=== PATIENT | female | born 1955 | race Two or more races ===

== ENCOUNTER 2016-09-29 03:31 | Emergency (ER) | payer MEDICAID ==
[~2016-09-29] VITALS: Ht 154.9 cm; Wt 86.2 kg
[~2016-09-29 03:31] MED LIST: ENA2.5T GT; INSLANTI SC; METF-370 PO
[2016-09-29 03:55] LABS: Urine RBC None Seen /hpf (0 - 4)
[2016-09-29 04:03] LABS: Urine Bilirubin Negative (Negative); Urine Blood Negative /uL (Negative); Urine Color Yellow (Yellow); Urine Ketone Negative (Negative); Urine Nitrite Negative (Negative); Urine Urobilinogen Normal (Negative)
[2016-09-29 04:05] LABS: Urine Glucose 4+ mg/dL (Normal)
[2016-09-29 04:16] LABS: Basophils # (auto) 0 uL; Basophils % (auto) 0.7 % (0.0-2.0); CONDITION AutoValidated; DEFINITIVE SEE PRINTOUT; Eosinophils # (auto) 0 uL; Eosinophils % (auto) 0.7 % (0.0-7.0); Hematocrit 35.2 % (36.0-46.0); Hemoglobin 11.7 g/dL (12.2-16.2); Lymphocytes # (auto) 2.1 uL; Lymphocytes % (auto) 32.4 % (10.0-50.0); Mean Corpuscular Hemoglobin 26.4 pg (28.0-32.0); Mean Corpuscular Hgb Conc. 33.3 g/dL (32.0-36.0); Mean Corpuscular Volume 79.1 fL (80.0-100.0); Monocytes # (auto) 0.4 uL; Monocytes % (auto) 5.7 % (0.0-12.0); Neutrophils % (auto) 60.5 % (37.0-80.0); Platelet Count (auto) 266 10^3/uL (140-450); Red Cell Distribution Width 15.6 % (11.6-16.0); White Blood Cell 6.6 10^3/uL (4.4-10.8)
[2016-09-29 04:32] LABS: BUN/Creatinine Ratio 37.8; Potassium 4.1 mmol/L (3.5-5.1)
[2016-09-29 04:33] LABS: Albumin 3.8 g/dL (3.4-5.0); Calcium 8.4 mg/dL (8.5-10.1)
[2016-09-29 04:35] LABS: Bilirubin, Total 0.4 mg/dL (0.2-1.0); Total Protein 7.8 g/dL (6.4-8.2)
[2016-09-29] MEDS ORDERED: SODIUM CHLORIDE 0.9% 500 ML IV ONE (06:00)
[2016-09-29] MEDS ORDERED: KETOROLAC TROMETH 30 MG/ML 1ML VIAL IV ONE (07:30)
[2016-09-29 07:50] LABS: B-Type Natriuretic Peptide 10.19 pg/mL (0-100)
[2016-09-29 07:51] LABS: Temperature: 22.9 C (20.0-25.0)
[2016-09-29 08:57] VITALS: BP 148/74
== END 2016-09-29 09:38 | disposition home or self-care (01) ==
LOC: ER 03:31
DX: R10.9 Unspecified abdominal pain (principal); R30.0 Dysuria; M19.90 Unspecified osteoarthritis, unspecified site; Z87.440 Personal history of urinary (tract) infections; I10 Essential (primary) hypertension; E11.9 Type 2 diabetes mellitus without complications; Z88.8 Allergy status to other drugs, medicaments and biological substances
CPT/HCPCS: 36415; 74176; 80053; 81001; 82962; 83880; 84484; 85025; 93005; 96361; 96374; 99285; J1885; J7040

== ENCOUNTER 2017-12-14 08:04 | Emergency (ER) | payer MEDICAID ==
[~2017-12-14] VITALS: Ht 157.5 cm; Wt 83.5 kg
[2017-12-14 08:54] VITALS: BP 166/76
== END 2017-12-14 09:22 | disposition home or self-care (01) ==
LOC: ER 08:04
DX: J06.9 Acute upper respiratory infection, unspecified (principal); H60.92 Unspecified otitis externa, left ear
CPT/HCPCS: 71046; 93005

== ENCOUNTER 2018-07-17 01:55 | Emergency (ER) | payer MEDICAID ==
[~2018-07-17] VITALS: Ht 152.4 cm; Wt 84.8 kg
[2018-07-17 02:32] LABS: Hematocrit 37.4 % (36.0-46.0); Hemoglobin 12.3 g/dL (12.2-16.2); Mean Corpuscular Hemoglobin 25.8 pg (28.0-32.0); Mean Corpuscular Volume 78.1 fL (80.0-100.0); Platelet Count (auto) 220 10^3/uL (140-450); Red Blood Cells 4.78 10^6/uL (4.0-5.20); Red Cell Distribution Width 14.9 % (11.8-14.3); White Blood Cell 5.4 10^3/uL (4.4-10.8)
[2018-07-17 02:34] LABS: Basophils % (manual) 0 (0.0-2.0); Blast Cells 0; Metamyelocytes % 0; Myelocytes % 0; Promyelocytes % 0; Reactive Lymphocytes 0
[2018-07-17 02:44] LABS: Alanine Aminotransferase 31 U/L (13-56); Albumin 3.8 g/dL (3.4-5.0); Anion Gap 6 (5-15); Aspartate Aminotransferase 18 U/L (15-37); Blood Urea Nitrogen 19 mg/dL (7-18); Carbon Dioxide 29 mmol/L (21-32); Chloride 104 mmol/L (98-107); GFR African American 104 mL/min; GFR Non-African American 86 mL/min; Glucose 126 mg/dL (74-106); Magnesium 2.4 mg/dL (1.6-2.6); Potassium 3.4 mmol/L (3.5-5.1); Sodium 139 mmol/L (136-145)
[2018-07-17 02:49] LABS: Alkaline Phosphatase 54 U/L (45-117); Bilirubin, Total 0.3 mg/dL (0.2-1.0); Total Protein 7.7 g/dL (6.4-8.2)
[2018-07-17 02:51] VITALS: BP 159/79
[2018-07-17] MEDS ORDERED: TORSEMIDE 20 MG TAB PO ONE (03:00)
[2018-07-17] MEDS ORDERED: KETOROLAC TROMETH 60MG/2ML VIAL IM ONE (03:30)
[2018-07-17 03:33] LABS: Band Neutrophils % (manual) 2; Eosinophils % (manual) 2 (0-7); Lymphocytes % (manual) 32 (10.0-50.0); Monocytes % (manual) 3 (0-12)
== END 2018-07-17 04:22 | disposition home or self-care (01) ==
LOC: ER 01:57
DX: I10 Essential (primary) hypertension (principal); M19.90 Unspecified osteoarthritis, unspecified site; E11.9 Type 2 diabetes mellitus without complications; Z90.49 Acquired absence of other specified parts of digestive tract; Z88.6 Allergy status to analgesic agent; Z79.4 Long term (current) use of insulin
CPT/HCPCS: 36415; 71045; 80053; 83735; 83880; 84484; 85007; 85027; 93005; 96372; 99284; J1885

== ENCOUNTER 2020-08-29 23:28 | Inpatient (IN) | payer OTHER, MEDICAID ==
[~2020-08-29] VITALS: Ht 127 cm; Wt 83.3 kg
[~2020-08-29 23:28] MED LIST changes: -ENA2.5T GT; +ENAL2.5T11 GT
[2020-08-29 23:58] LABS: Basophils # (auto) 0 10 ^3/uL (0-0.2); Basophils % (auto) 0.3 % (0.0-2.0); Eosinophils # (auto) 0 10 ^3/uL (0-0.8); Eosinophils % (auto) 0.3 % (0.0-7.0); Hematocrit 40.3 % (36.0-46.0); Hemoglobin 13.1 g/dL (12.2-16.2); Lymphocytes # (auto) 0.5 10 ^3/uL (0.4-5.4); Lymphocytes % (auto) 7.1 % (10.0-50.0); Mean Corpuscular Hemoglobin 26.4 pg (28.0-32.0); Mean Corpuscular Hgb Conc. 32.5 g/dL (32.0-36.0); Mean Corpuscular Volume 81.3 fL (80.0-100.0); Monocytes # (auto) 0.3 10 ^3/uL (0-1.3); Monocytes % (auto) 3.9 % (0.0-12.0); Neutrophils # (auto) 6.5 10 ^3/uL (1.6-8.6); Neutrophils % (auto) 88.4 % (37.0-80.0); Nucleated Red Blood Cells % 0.1 %; Platelet Count (auto) 261 10^3/uL (140-450); Red Blood Cells 4.96 10^6/uL (4.0-5.20); Red Cell Distribution Width 15.2 % (11.8-14.3); White Blood Cell 7.4 10^3/uL (4.4-10.8)
[2020-08-30 00:32] LABS: Urine Bacteria FEW /hpf (None Seen); Urine Blood Negative /uL (Negative); Urine Specific Gravity 1.017 (1.001-1.035); Urine WBC 5 /hpf (0 - 5)
[2020-08-30 00:35] LABS: Albumin 3.4 g/dL (3.4-5.0); BUN/Creatinine Ratio 39.1; Potassium 4.1 mmol/L (3.5-5.1)
[2020-08-30 00:37] LABS: Bilirubin, Total 0.5 mg/dL (0.2-1.0); Total Protein 7.6 g/dL (6.4-8.2)
[2020-08-30] MEDS ORDERED: LACTATED RINGER'S 1,000 ML IV ONE (05:00)
[2020-08-30] MEDS ORDERED: ONDANSETRON HCL 4 MG/2 ML VIAL IV ONE (05:00)
[2020-08-30] MEDS ORDERED: NITROGLYCERIN 0.4 MG SL TAB SL PRN (11:15)
[2020-08-30] MEDS ORDERED: ONDANSETRON HCL 4 MG/2 ML VIAL IV PRN ×2 (11:15)
[2020-08-30] MEDS ORDERED: MORPHINE SULF INJ 2 MG/ML SYRINGE 1ML IV PRN (11:15)
[2020-08-30] MEDS ORDERED: PANTOPRAZOLE 40 MG/10 ML VIAL INJ IV ONE (11:15)
[2020-08-30 12:07] LABS: Magnesium 2.3 mg/dL (1.6-2.6); Phosphorus 2.3 mg/dL (2.5-4.90)
[2020-08-30] MEDS: SODIUM CHLORIDE 0.9% 1,000 ML IV SCH (12:23)
[2020-08-30 13:00] VITALS: BP 120/61
[2020-08-30] MEDS ORDERED: ACCU-CHEK COMFORT CURVE STRIP VI SCH (14:00)
[2020-08-30 17:00] VITALS: BP 122/75
[2020-08-30] MEDS: ACCU-CHEK COMFORT CURVE STRIP VI SCH ×2 (21:10→21:11)
[2020-08-30] MEDS: PANTOPRAZOLE 40 MG/10 ML VIAL INJ IV SCH (21:53)
[2020-08-30 22:00] VITALS: BP 102/53
[2020-08-31] MEDS: ACCU-CHEK COMFORT CURVE STRIP VI SCH ×2 (02:49→05:57)
[2020-08-31] MEDS: SODIUM CHLORIDE 0.9% 1,000 ML IV SCH (03:15)
[2020-08-31 05:00] VITALS: BP 131/75
[2020-08-31 06:55] LABS: Basophils # (auto) 0 10 ^3/uL (0-0.2); Basophils % (auto) 0.3 % (0.0-2.0); Eosinophils # (auto) 0.1 10 ^3/uL (0-0.8); Eosinophils % (auto) 2.3 % (0.0-7.0); Hematocrit 36.4 % (36.0-46.0); Hemoglobin 12.3 g/dL (12.2-16.2); Lymphocytes # (auto) 1.4 10 ^3/uL (0.4-5.4); Lymphocytes % (auto) 35.8 % (10.0-50.0); Mean Corpuscular Hemoglobin 27.6 pg (28.0-32.0); Mean Corpuscular Hgb Conc. 33.9 g/dL (32.0-36.0); Mean Corpuscular Volume 81.5 fL (80.0-100.0); Monocytes # (auto) 0.3 10 ^3/uL (0-1.3); Monocytes % (auto) 7.9 % (0.0-12.0); Neutrophils # (auto) 2.1 10 ^3/uL (1.6-8.6); Neutrophils % (auto) 53.7 % (37.0-80.0); Platelet Count (auto) 257 10^3/uL (140-450); Red Blood Cells 4.46 10^6/uL (4.0-5.20); Red Cell Distribution Width 15.8 % (11.8-14.3)
[2020-08-31 07:06] LABS: Albumin 3.2 g/dL (3.4-5.0); Calcium 8.3 mg/dL (8.5-10.1); Potassium 3.6 mmol/L (3.5-5.1)
[2020-08-31 07:09] LABS: BUN/Creatinine Ratio 36.5; Bilirubin, Total 0.3 mg/dL (0.2-1.0); Total Protein 7.1 g/dL (6.4-8.2)
[2020-08-31 08:58] VITALS: BP 102/50
[2020-08-31] MEDS ORDERED: ENOXAPARIN SOD 40 MG/0.4 ML SYRINGE SC SCH (10:00)
[2020-08-31] MEDS: PANTOPRAZOLE 40 MG/10 ML VIAL INJ IV SCH (11:03)
[2020-08-31] MEDS ORDERED: DEXTROSE (50%) 50ML SYRG IV PRN (11:15)
[2020-08-31] MEDS ORDERED: InsuLIN REG 1unit/0.01ml Soln (100units/ml) SC SCH (11:30)
[2020-08-31] MEDS ORDERED: ACCU-CHEK COMFORT CURVE STRIP VI SCH ×2 (11:30→12:00)
[2020-08-31 12:59] VITALS: BP 126/53
[2020-08-31 13:35] VITALS: BP 126/53
== END 2020-08-31 15:25 | disposition home or self-care (01) | DRG 392 ==
LOC: ER 23:36 → TELE 08-30 11:13 → TELE-CENTR 08-30 12:38
PROVIDERS: ADMIT Nurse Practitioner; ATTEND Nurse Practitioner
DX: K59.00 Constipation, unspecified (principal); E11.40 Type 2 diabetes mellitus with diabetic neuropathy, unspecified; I10 Essential (primary) hypertension; Z20.822 Contact with and (suspected) exposure to COVID-19; Z87.440 Personal history of urinary (tract) infections; Z90.49 Acquired absence of other specified parts of digestive tract; Z88.1 Allergy status to other antibiotic agents; Z88.5 Allergy status to narcotic agent; Z91.012 Allergy to eggs
CPT/HCPCS: 36415; 74176; 74250; 80053; 81001; 82962; 83605; 83690; 83735; 84100; 84484; 85025; 87426; 93005; 96361; 96374; 96375; C9113; G0378; J1815; J2405

== ENCOUNTER 2022-10-03 07:15 | Inpatient (IN) | payer OTHER, MEDICAID ==
[2022-10-03] VITALS (12 sets, daily range): BP systolic 70–135; BP diastolic 30–74
[~2022-10-03] VITALS: Ht 160 cm; Wt 85.0 kg
[2022-10-03] MEDS ORDERED: LIDOCAINE 2%HCL (LOCAL ANESTH.) INJ 20ML MDV ONE (07:22)
[2022-10-03] MEDS ORDERED: IODIXANOL 320MG/ML 100ML BTL IV ONE ×2 (07:22→08:32)
[2022-10-03] MEDS ORDERED: VERAPAMIL 2.5MG/ML INJ 2ML VIAL IV ONE (07:27)
[2022-10-03] MEDS ORDERED: ANGIOMAX 250 MG VIAL IV ONE (07:27)
[2022-10-03] MEDS ORDERED: SODIUM CHL 0.9% 50 ML ONE (07:27)
[2022-10-03] MEDS ORDERED: fentaNYL CITRATE 100 MCG/2 ML VL ONE (07:27)
[2022-10-03] MEDS ORDERED: MIDAZOLAM HCL 2MG/2ML 2ml VIAL (1mg/ml) ONE (07:27)
[2022-10-03] MEDS ORDERED: HEPARIN 1,000 UNITS/ml 1ML VIAL IV ONE (07:30)
[2022-10-03] MEDS ORDERED: MORPHINE SULFATE 4 MG/ML SYR/VIAL IV ONE (07:30)
[2022-10-03] MEDS ORDERED: ONDANSETRON HCL 4 MG/2 ML VIAL ONE (07:37)
[2022-10-03 08:01] LABS: Basophils # (auto) 0 10 ^3/uL (0-0.2); Basophils % (auto) 0.6 % (0.0-2.0); Eosinophils # (auto) 0.1 10 ^3/uL (0-0.8); Eosinophils % (auto) 0.7 % (0.0-7.0); Hemoglobin 12.5 g/dL (12.2-16.2); Nucleated Red Blood Cells % 0.2 %
[2022-10-03 08:04] LABS: Hematocrit 37.9 % (36.0-46.0); Lymphocytes # (auto) 3.4 10 ^3/uL (0.4-5.4); Lymphocytes % (auto) 41.6 % (10.0-50.0); Monocytes # (auto) 0.5 10 ^3/uL (0-1.3); Monocytes % (auto) 6.1 % (0.0-12.0); Neutrophils # (auto) 4.2 10 ^3/uL (1.6-8.6); Red Blood Cells 4.63 10^6/uL (4.0-5.20); Red Cell Distribution Width 14.6 % (11.8-14.3); White Blood Cell 8.2 10^3/uL (4.4-10.8)
[2022-10-03] MEDS ORDERED: EPTIFIBATIDE INJ (2MG/ML) 10ML VIAL IV ONE (08:10)
[2022-10-03 08:13] LABS: INR 0.99 (0.9-1.15); Partial Thromboplastin Time 25.9 SEC (24.5-34.5)
[2022-10-03 08:20] LABS: Albumin 3.6 g/dL (3.4-5.0); Calcium 8.9 mg/dL (8.5-10.1); Magnesium 2.5 mg/dL (1.6-2.6); Potassium 3.9 mmol/L (3.5-5.1)
[2022-10-03 08:24] LABS: BUN/Creatinine Ratio 31.8 (10.0-20.0); Bilirubin, Total 0.5 mg/dL (0.2-1.0); Total Protein 6.8 g/dL (6.4-8.2)
[2022-10-03] MEDS ORDERED: TICAGRELOR 90 MG TAB ONE (08:34)
[2022-10-03] MEDS ORDERED: SODIUM CHLORIDE 0.9% 1,000 ML IV SCH (09:15)
[2022-10-03] MEDS: TICAGRELOR 90 MG TAB PO SCH ×2 (10:15→22:13)
[2022-10-03] MEDS ORDERED: DEXTROSE (50%) 50ML SYRG IV PRN ×2 (10:15→14:45)
[2022-10-03] MEDS ORDERED: NITROGLYCERIN 0.4 MG SL TAB SL PRN ×2 (10:30)
[2022-10-03] MEDS ORDERED: MORPHINE SULFATE INJ 2 MG/ml SYRG IV PRN ×3 (10:30→14:45)
[2022-10-03 11:02] LABS: Magnesium 2.5 mg/dL (1.6-2.6)
[2022-10-03] MEDS: ACCU-CHEK COMFORT CURVE STRIP VI SCH ×5 (11:30→22:16)
[2022-10-03] MEDS ORDERED: EMPA1TAB3 PO (14:00)
[2022-10-03] MEDS ORDERED: ZINC220C8 PO (14:00)
[2022-10-03] MEDS ORDERED: MONT-8 IN (14:00)
[2022-10-03] MEDS: SODIUM CHLOR 0.9% PF (SALINE LOCK) 10ML VIAL/SYR IV SCH ×2 (14:00→22:17)
[2022-10-03] MEDS ORDERED: CETI10TA2 PO (14:00)
[2022-10-03] MEDS ORDERED: HYDR25TA4 PO (14:00)
[2022-10-03] MEDS ORDERED: ESOM20GR PO (14:00)
[2022-10-03] MEDS ORDERED: GLIP10TA9 PO (14:00)
[2022-10-03] MEDS ORDERED: CHOL20007 PO (14:00)
[2022-10-03] MEDS ORDERED: SEMA2INJ3 SC ×2 (14:00→14:06)
[2022-10-03] MEDS ORDERED: PANTOPRAZOLE 40 MG/10 ML VIAL INJ IV ONE (14:45)
[2022-10-03] MEDS: METOPROLOL SUCCINATE XL 50 MG TAB PO SCH (15:18)
[2022-10-03] MEDS: ASPirin 81 mg TAB PO SCH (15:18)
[2022-10-03] MEDS: ONDANSETRON HCL 4 MG/2 ML VIAL IV PRN (15:19)
[2022-10-03] MEDS: InsuLIN REG 1unit/0.01ml Soln (100units/ml) SC SCH ×2 (17:00→22:00)
[2022-10-03] MEDS: HYDROcodone-ACET 5/325MG TAB PO PRN (18:00)
[2022-10-03] MEDS: MONTELUKAST SODIUM 10 MG TAB PO SCH (22:00)
[2022-10-03] MEDS ORDERED: TICAGRELOR 90 MG TAB PO SCH (22:00)
[2022-10-03] MEDS ORDERED: ATORVASTATIN 20 MG TAB PO SCH ×2 (22:00)
[2022-10-03] MEDS: ATORVASTATIN 20 MG TAB PO SCH (22:15)
[2022-10-04] MEDS: HYDROcodone-ACET 5/325MG TAB PO PRN ×2 (04:56→05:55)
[2022-10-04 05:00] VITALS: BP 132/66
[2022-10-04 06:24] LABS: Basophils # (auto) 0 10 ^3/uL (0-0.2); Basophils % (auto) 0.5 % (0.0-2.0); Eosinophils # (auto) 0 10 ^3/uL (0-0.8); Eosinophils % (auto) 0.1 % (0.0-7.0); White Blood Cell 8.3 10^3/uL (4.4-10.8)
[2022-10-04 06:26] LABS: Hematocrit 38.2 % (36.0-46.0); Hemoglobin 12.8 g/dL (12.2-16.2); Lymphocytes % (auto) 12.4 % (10.0-50.0); Mean Corpuscular Hemoglobin 26.9 pg (28.0-32.0); Mean Corpuscular Hgb Conc. 33.4 g/dL (32.0-36.0); Mean Corpuscular Volume 80.5 fL (80.0-100.0); Monocytes # (auto) 0.6 10 ^3/uL (0-1.3); Monocytes % (auto) 6.9 % (0.0-12.0); Neutrophils # (auto) 6.6 10 ^3/uL (1.6-8.6); Neutrophils % (auto) 80.1 % (37.0-80.0); Red Blood Cells 4.75 10^6/uL (4.0-5.20); Red Cell Distribution Width 14.7 % (11.8-14.3)
[2022-10-04] MEDS: InsuLIN REG 1unit/0.01ml Soln (100units/ml) SC SCH ×4 (07:00→22:00)
[2022-10-04] MEDS: ACCU-CHEK COMFORT CURVE STRIP VI SCH ×8 (07:00→22:06)
[2022-10-04 07:15] LABS: Potassium 3.6 mmol/L (3.5-5.1)
[2022-10-04 07:28] LABS: Albumin 3.6 g/dL (3.4-5.0); BUN/Creatinine Ratio 31.5 (10.0-20.0); Bilirubin, Total 1.2 mg/dL (0.2-1.0); Calcium 8.6 mg/dL (8.5-10.1); Total Protein 7.2 g/dL (6.4-8.2)
[2022-10-04] MEDS: SODIUM CHLOR 0.9% PF (SALINE LOCK) 10ML VIAL/SYR IV SCH ×3 (07:30→22:05)
[2022-10-04 08:45] VITALS: BP 111/46
[2022-10-04] MEDS: SODIUM CHLORIDE 0.9% 1,000 ML IV SCH (09:45)
[2022-10-04] MEDS ORDERED: METOPROLOL TARTRATE 25 MG TAB PO SCH (10:00)
[2022-10-04] MEDS: METOPROLOL SUCCINATE XL 50 MG TAB PO SCH (10:00)
[2022-10-04] MEDS ORDERED: ASPirin-EC 81 mg tab PO SCH (10:00)
[2022-10-04] MEDS: ASPirin 81 mg TAB PO SCH (10:38)
[2022-10-04] MEDS: PANTOPRAZOLE 40 MG/10 ML VIAL INJ IV SCH (10:38)
[2022-10-04] MEDS: TICAGRELOR 90 MG TAB PO SCH ×2 (10:39→21:53)
[2022-10-04] MEDS: HYDROmorphone HCL 2 MG/ML VL/or syr IV PRN ×3 (10:40→21:58)
[2022-10-04 12:00] VITALS: BP 106/51
[2022-10-04 14:34] LABS: Urine Bacteria NONE SEEN /hpf (None Seen); Urine Blood Negative /uL (Negative); Urine Specific Gravity 1.036 (1.001-1.035); Urine WBC 13 /hpf (0 - 5)
[2022-10-04] MEDS ORDERED: POTASSIUM CHL 20 Meq TABLET PO ONE (15:00)
[2022-10-04 17:00] VITALS: BP 112/59
[2022-10-04] MEDS: ONDANSETRON HCL 4 MG/2 ML VIAL IV PRN (17:01)
[2022-10-04] MEDS: ATORVASTATIN 20 MG TAB PO SCH (21:53)
[2022-10-04 22:00] VITALS: BP 119/47
[2022-10-04] MEDS: MONTELUKAST SODIUM 10 MG TAB PO SCH (22:00)
[2022-10-05] MEDS: HYDROmorphone HCL 2 MG/ML VL/or syr IV PRN ×2 (04:13→22:02)
[2022-10-05 04:58] VITALS: BP 105/52
[2022-10-05] MEDS: HYDROcodone-ACET 5/325MG TAB PO PRN ×3 (05:51→18:50)
[2022-10-05] MEDS: SODIUM CHLORIDE 0.9% 1,000 ML IV SCH (05:52)
[2022-10-05] MEDS: SODIUM CHLOR 0.9% PF (SALINE LOCK) 10ML VIAL/SYR IV SCH ×3 (05:54→22:10)
[2022-10-05] MEDS: InsuLIN REG 1unit/0.01ml Soln (100units/ml) SC SCH ×4 (05:55→22:00)
[2022-10-05] MEDS: ACCU-CHEK COMFORT CURVE STRIP VI SCH ×5 (05:55→22:10)
[2022-10-05 06:10] LABS: Basophils # (auto) 0.1 10 ^3/uL (0-0.2); Basophils % (auto) 0.7 % (0.0-2.0); Eosinophils # (auto) 0 10 ^3/uL (0-0.8); Eosinophils % (auto) 0.3 % (0.0-7.0); Hematocrit 34.3 % (36.0-46.0); Hemoglobin 11.6 g/dL (12.2-16.2); Lymphocytes # (auto) 1.2 10 ^3/uL (0.4-5.4); Lymphocytes % (auto) 15.6 % (10.0-50.0); Mean Corpuscular Hemoglobin 27.7 pg (28.0-32.0); Mean Corpuscular Hgb Conc. 33.9 g/dL (32.0-36.0); Mean Corpuscular Volume 81.5 fL (80.0-100.0); Monocytes # (auto) 0.8 10 ^3/uL (0-1.3); Monocytes % (auto) 9.6 % (0.0-12.0); Neutrophils # (auto) 5.8 10 ^3/uL (1.6-8.6); Neutrophils % (auto) 73.8 % (37.0-80.0); Red Blood Cells 4.21 10^6/uL (4.0-5.20); Red Cell Distribution Width 14.3 % (11.8-14.3); White Blood Cell 7.9 10^3/uL (4.4-10.8)
[2022-10-05 06:44] LABS: Potassium 3.8 mmol/L (3.5-5.1)
[2022-10-05 06:51] LABS: BUN/Creatinine Ratio 36.4 (10.0-20.0); Calcium 8.2 mg/dL (8.5-10.1)
[2022-10-05 09:00] VITALS: BP 118/54
[2022-10-05] MEDS: TICAGRELOR 90 MG TAB PO SCH ×2 (10:00→18:44)
[2022-10-05] MEDS: PANTOPRAZOLE 40 MG/10 ML VIAL INJ IV SCH (10:00)
[2022-10-05] MEDS: METOPROLOL SUCCINATE XL 50 MG TAB PO SCH (10:00)
[2022-10-05] MEDS: ASPirin 81 mg TAB PO SCH (10:00)
[2022-10-05 13:00] VITALS: BP 112/57
[2022-10-05] MEDS ORDERED: POTASSIUM CHL 20 Meq TABLET PO ONE (15:00)
[2022-10-05] MEDS ORDERED: SODIUM CHLORIDE 0.9% 1,000 ML IV ONE (16:45)
[2022-10-05] MEDS ORDERED: IOHEXOL 350 MG/ML 100ML IJ ONE (17:02)
[2022-10-05] MEDS ORDERED: LIDOCAINE 2%HCL (LOCAL ANESTH.) INJ 20ML MDV ONE (17:02)
[2022-10-05] MEDS ORDERED: fentaNYL CITRATE 100 MCG/2 ML VL ONE (17:03)
[2022-10-05] MEDS ORDERED: SODIUM CHL 0.9% 50 ML ONE (17:03)
[2022-10-05] MEDS ORDERED: MIDAZOLAM HCL 2MG/2ML 2ml VIAL (1mg/ml) ONE (17:03)
[2022-10-05] MEDS ORDERED: ANGIOMAX 250 MG VIAL IV ONE (17:03)
[2022-10-05] MEDS ORDERED: IODIXANOL 320MG/ML 100ML BTL IV ONE ×2 (17:32→18:01)
[2022-10-05] MEDS ORDERED: EPTIFIBATIDE INJ (2MG/ML) 10ML VIAL IV ONE (17:53)
[2022-10-05] MEDS ORDERED: ONDANSETRON HCL 4 MG/2 ML VIAL ONE (17:56)
[2022-10-05 18:05] LABS: Basophils # (auto) 0.1 10 ^3/uL (0-0.2); Basophils % (auto) 0.6 % (0.0-2.0); Eosinophils # (auto) 0 10 ^3/uL (0-0.8); Eosinophils % (auto) 0.1 % (0.0-7.0); Hematocrit 34.8 % (36.0-46.0); Hemoglobin 11.4 g/dL (12.2-16.2); Lymphocytes # (auto) 1.6 10 ^3/uL (0.4-5.4); Lymphocytes % (auto) 16.7 % (10.0-50.0); Mean Corpuscular Hgb Conc. 32.9 g/dL (32.0-36.0); Mean Corpuscular Volume 82.2 fL (80.0-100.0); Monocytes # (auto) 0.9 10 ^3/uL (0-1.3); Monocytes % (auto) 10.1 % (0.0-12.0); Neutrophils # (auto) 6.8 10 ^3/uL (1.6-8.6); Neutrophils % (auto) 72.5 % (37.0-80.0); Nucleated Red Blood Cells % 0.1 %; Red Blood Cells 4.23 10^6/uL (4.0-5.20); Red Cell Distribution Width 14.7 % (11.8-14.3); White Blood Cell 9.3 10^3/uL (4.4-10.8)
[2022-10-05 18:17] LABS: Albumin 3.2 g/dL (3.4-5.0); Calcium 8.3 mg/dL (8.5-10.1); Potassium 3.7 mmol/L (3.5-5.1)
[2022-10-05 18:22] LABS: BUN/Creatinine Ratio 22.2 (10.0-20.0); Bilirubin, Total 1.2 mg/dL (0.2-1.0)
[2022-10-05 18:29] LABS: INR 1.06 (0.9-1.15); Partial Thromboplastin Time 34.9 SEC (24.5-34.5)
[2022-10-05] MEDS ORDERED: TICAGRELOR 90 MG TAB ONE (18:29)
[2022-10-05 20:00] VITALS: BP 114/63
[2022-10-05] MEDS: MONTELUKAST SODIUM 10 MG TAB PO SCH (22:00)
[2022-10-05] MEDS: ATORVASTATIN 20 MG TAB PO SCH (22:03)
[2022-10-06] MEDS: HYDROcodone-ACET 5/325MG TAB PO PRN ×2 (02:25→10:10)
[2022-10-06 05:00] VITALS: BP 110/63
[2022-10-06] MEDS: ACCU-CHEK COMFORT CURVE STRIP VI SCH ×4 (06:21→22:00)
[2022-10-06] MEDS: InsuLIN REG 1unit/0.01ml Soln (100units/ml) SC SCH ×4 (06:21→22:46)
[2022-10-06] MEDS: SODIUM CHLOR 0.9% PF (SALINE LOCK) 10ML VIAL/SYR IV SCH ×3 (06:21→22:00)
[2022-10-06] MEDS: HYDROmorphone HCL 2 MG/ML VL/or syr IV PRN (07:47)
[2022-10-06] MEDS: ONDANSETRON HCL 4 MG/2 ML VIAL IV PRN (07:57)
[2022-10-06 08:53] LABS: Basophils # (auto) 0 10 ^3/uL (0-0.2); Basophils % (auto) 0.5 % (0.0-2.0); Eosinophils # (auto) 0 10 ^3/uL (0-0.8); Eosinophils % (auto) 0.1 % (0.0-7.0); Hematocrit 33.7 % (36.0-46.0); Hemoglobin 10.9 g/dL (12.2-16.2); Lymphocytes # (auto) 0.7 10 ^3/uL (0.4-5.4); Lymphocytes % (auto) 9.8 % (10.0-50.0); Mean Corpuscular Hemoglobin 27.1 pg (28.0-32.0); Mean Corpuscular Hgb Conc. 32.4 g/dL (32.0-36.0); Mean Corpuscular Volume 83.8 fL (80.0-100.0); Monocytes # (auto) 0.7 10 ^3/uL (0-1.3); Monocytes % (auto) 9.3 % (0.0-12.0); Neutrophils % (auto) 80.3 % (37.0-80.0); Nucleated Red Blood Cells % 0.1 %; Red Blood Cells 4.02 10^6/uL (4.0-5.20); Red Cell Distribution Width 14.7 % (11.8-14.3); White Blood Cell 7.5 10^3/uL (4.4-10.8)
[2022-10-06 09:00] VITALS: BP 154/64
[2022-10-06 09:03] LABS: Calcium 8.2 mg/dL (8.5-10.1)
[2022-10-06 09:06] LABS: BUN/Creatinine Ratio 43.2 (10.0-20.0)
[2022-10-06] MEDS ORDERED: SODIUM BICARBONATE 50ML VIAL 150 ML in D5W 5% 1,000 ML IV ONE ×2 (09:30→15:15)
[2022-10-06] MEDS ORDERED: cefTRIAXone 1GM/50ML D5W 50 ML IV ONE (09:30)
[2022-10-06] MEDS ORDERED: SODIUM BICARBONATE 8.4 % INJ 50ML VIAL IV ONE (09:30)
[2022-10-06] MEDS: METOPROLOL SUCCINATE XL 50 MG TAB PO SCH (10:09)
[2022-10-06] MEDS: TICAGRELOR 90 MG TAB PO SCH ×2 (10:10→22:47)
[2022-10-06] MEDS: PANTOPRAZOLE 40 MG/10 ML VIAL INJ IV SCH (10:11)
[2022-10-06] MEDS: ASPirin 81 mg TAB PO SCH (10:11)
[2022-10-06] MEDS ORDERED: SODIUM BICARBONATE 50ML VIAL 75 ML in D5W 5% 1,000 ML IV ONE (12:45)
[2022-10-06] MEDS ORDERED: MONTELUKAST SODIUM 10 MG TAB PO ONE (13:15)
[2022-10-06] MEDS: DOCUSATE SOD 100 MG CAP PO PRN ×2 (13:18→22:47)
[2022-10-06 13:32] VITALS: BP 116/71
[2022-10-06 14:46] LABS: Hepatitis C Antibody Negative (Negative)
[2022-10-06 17:00] VITALS: BP 118/50
[2022-10-06 22:11] LABS: BUN/Creatinine Ratio 21.9 (10.0-20.0); Calcium 8.2 mg/dL (8.5-10.1); Potassium 3.2 mmol/L (3.5-5.1)
[2022-10-06] MEDS: MONTELUKAST SODIUM 10 MG TAB PO SCH (22:47)
[2022-10-06] MEDS: ATORVASTATIN 20 MG TAB PO SCH (22:48)
[2022-10-07] MEDS ORDERED: guaiFENesin-DM 100/10mg/5ml SYR PO PRN (00:45)
[2022-10-07] MEDS: HYDROcodone-ACET 5/325MG TAB PO PRN (01:18)
[2022-10-07 05:00] VITALS: BP 115/52
[2022-10-07 05:53] LABS: Basophils # (auto) 0 10 ^3/uL (0-0.2); Eosinophils # (auto) 0.1 10 ^3/uL (0-0.8); Hemoglobin 9.3 g/dL (12.2-16.2); Lymphocytes # (auto) 0.9 10 ^3/uL (0.4-5.4); Monocytes # (auto) 0.5 10 ^3/uL (0-1.3); Monocytes % (auto) 10.6 % (0.0-12.0); Neutrophils # (auto) 3.5 10 ^3/uL (1.6-8.6); Nucleated Red Blood Cells % 0.1 %
[2022-10-07 05:55] LABS: Basophils % (auto) 0.6 % (0.0-2.0); Eosinophils % (auto) 1.3 % (0.0-7.0); Hematocrit 28.3 % (36.0-46.0); Lymphocytes % (auto) 18.3 % (10.0-50.0); Mean Corpuscular Hemoglobin 26.8 pg (28.0-32.0); Mean Corpuscular Hgb Conc. 32.9 g/dL (32.0-36.0); Mean Corpuscular Volume 81.6 fL (80.0-100.0); Neutrophils % (auto) 69.2 % (37.0-80.0); Red Blood Cells 3.47 10^6/uL (4.0-5.20); Red Cell Distribution Width 13.9 % (11.8-14.3); White Blood Cell 5.1 10^3/uL (4.4-10.8)
[2022-10-07] MEDS: SODIUM CHLOR 0.9% PF (SALINE LOCK) 10ML VIAL/SYR IV SCH ×3 (06:00→22:20)
[2022-10-07 06:13] LABS: Albumin 2.6 g/dL (3.4-5.0); BUN/Creatinine Ratio 27.3 (10.0-20.0); Bilirubin, Total 1.1 mg/dL (0.2-1.0); Calcium 7.8 mg/dL (8.5-10.1); Magnesium 2.3 mg/dL (1.6-2.6); Total Protein 5.8 g/dL (6.4-8.2)
[2022-10-07] MEDS: InsuLIN REG 1unit/0.01ml Soln (100units/ml) SC SCH ×4 (06:47→22:07)
[2022-10-07] MEDS: ACCU-CHEK COMFORT CURVE STRIP VI SCH ×4 (06:50→22:20)
[2022-10-07 09:00] VITALS: BP 104/40
[2022-10-07] MEDS ORDERED: POTASSIUM CHLORIDE 40 MEQ, LIDOCAINE 1% (LOCAL ANESTH.) 4 ML in SODIUM CHL 0.9% 250 ML IV ONE (09:30)
[2022-10-07] MEDS ORDERED: POTASSIUM CHL 20 Meq TABLET PO ONE ×2 (09:30→12:30)
[2022-10-07] MEDS: PANTOPRAZOLE 40 MG/10 ML VIAL INJ IV SCH (09:59)
[2022-10-07] MEDS: METOPROLOL SUCCINATE XL 50 MG TAB PO SCH (10:00)
[2022-10-07] MEDS: cefTRIAXone 1GM/50ML D5W 50 ML IV SCH (10:01)
[2022-10-07] MEDS: ASPirin 81 mg TAB PO SCH (10:01)
[2022-10-07] MEDS: TICAGRELOR 90 MG TAB PO SCH ×2 (10:01→22:08)
[2022-10-07] MEDS: ONDANSETRON HCL 4 MG/2 ML VIAL IV PRN (10:16)
[2022-10-07] MEDS: HYDROmorphone HCL 2 MG/ML VL/or syr IV PRN ×4 (10:17→22:10)
[2022-10-07 10:48] LABS: BUN/Creatinine Ratio 20.4 (10.0-20.0); Potassium 3.2 mmol/L (3.5-5.1)
[2022-10-07] MEDS ORDERED: FUROSEMIDE 20 MG/2 ML VIAL IV ONE (12:30)
[2022-10-07 13:00] VITALS: BP 115/67
[2022-10-07] MEDS ORDERED: POTASSIUM EFFERVESENT TAB 25 MEQ PO ONE (14:00)
[2022-10-07] MEDS ORDERED: EPINEPHrine HCL 1 MG/10 ML SYRG IV ONE (16:41)
[2022-10-07] MEDS ORDERED: AMIODARONE HCL (50 MG/ ML) 3 ML VIAL IV ONE (16:41)
[2022-10-07] MEDS ORDERED: FLUMAZENIL 0.1 MG/ML INJ 10ML MDV IV ONE (16:41)
[2022-10-07] MEDS ORDERED: SODIUM BICARBONATE 8.4% INJ 50ML SYRINGE IV ONE (16:43)
[2022-10-07 17:47] VITALS: BP 117/32
[2022-10-07 22:00] VITALS: BP 120/63
[2022-10-07] MEDS: MONTELUKAST SODIUM 10 MG TAB PO SCH (22:08)
[2022-10-07] MEDS: ATORVASTATIN 20 MG TAB PO SCH (22:09)
[2022-10-07 22:49] LABS: Calcium 8.2 mg/dL (8.5-10.1); Potassium 3.8 mmol/L (3.5-5.1)
[2022-10-08] MEDS: ONDANSETRON HCL 4 MG/2 ML VIAL IV PRN (04:51)
[2022-10-08] MEDS: HYDROmorphone HCL 2 MG/ML VL/or syr IV PRN (04:51)
[2022-10-08 05:00] VITALS: BP 113/50
[2022-10-08 06:17] LABS: Basophils # (auto) 0 10 ^3/uL (0-0.2); Basophils % (auto) 0.8 % (0.0-2.0); Eosinophils # (auto) 0.1 10 ^3/uL (0-0.8); Eosinophils % (auto) 1.8 % (0.0-7.0); Hematocrit 30.5 % (36.0-46.0); Hemoglobin 10.1 g/dL (12.2-16.2); Lymphocytes # (auto) 1.3 10 ^3/uL (0.4-5.4); Lymphocytes % (auto) 26.6 % (10.0-50.0); Mean Corpuscular Hgb Conc. 33.2 g/dL (32.0-36.0); Mean Corpuscular Volume 81.3 fL (80.0-100.0); Monocytes # (auto) 0.5 10 ^3/uL (0-1.3); Monocytes % (auto) 9.7 % (0.0-12.0); Neutrophils # (auto) 2.9 10 ^3/uL (1.6-8.6); Neutrophils % (auto) 61.1 % (37.0-80.0); Nucleated Red Blood Cells % 0.1 %; Red Blood Cells 3.76 10^6/uL (4.0-5.20); Red Cell Distribution Width 13.9 % (11.8-14.3); White Blood Cell 4.7 10^3/uL (4.4-10.8)
[2022-10-08] MEDS: SODIUM CHLOR 0.9% PF (SALINE LOCK) 10ML VIAL/SYR IV SCH ×2 (06:22→13:37)
[2022-10-08] MEDS: InsuLIN REG 1unit/0.01ml Soln (100units/ml) SC SCH ×2 (06:22→15:38)
[2022-10-08] MEDS: ACCU-CHEK COMFORT CURVE STRIP VI SCH ×2 (06:22→12:35)
[2022-10-08 06:32] LABS: Potassium 3.6 mmol/L (3.5-5.1)
[2022-10-08 06:35] LABS: BUN/Creatinine Ratio 23.4 (10.0-20.0); Calcium 8.4 mg/dL (8.5-10.1)
[2022-10-08 08:00] VITALS: BP 112/60
[2022-10-08] MEDS: cefTRIAXone 1GM/50ML D5W 50 ML IV SCH (08:49)
[2022-10-08] MEDS: TICAGRELOR 90 MG TAB PO SCH (08:51)
[2022-10-08] MEDS: ASPirin 81 mg TAB PO SCH (08:51)
[2022-10-08] MEDS: METOPROLOL SUCCINATE XL 50 MG TAB PO SCH (09:02)
[2022-10-08] MEDS ORDERED: FUROSEMIDE 20 MG/2 ML VIAL IV SCH (10:00)
[2022-10-08] MEDS ORDERED: PANTOPRAZOLE 40 MG TAB PO SCH (10:00)
[2022-10-08] MEDS ORDERED: POTASSIUM CHL 20 Meq TABLET PO SCH (10:00)
[2022-10-08] MEDS ORDERED: POTASSIUM EFFERVESENT TAB 25 MEQ PO SCH (10:00)
[2022-10-08 11:50] LABS: BUN/Creatinine Ratio 19.3 (10.0-20.0); Calcium 8.5 mg/dL (8.5-10.1)
[2022-10-08 13:00] VITALS: BP 140/66
[2022-10-08] MEDS ORDERED: TICA90TA PO (13:20)
[2022-10-08] MEDS ORDERED: ATOR20TA50 PO (13:20)
[2022-10-08] MEDS ORDERED: METO-6 PO (13:20)
[2022-10-08] MEDS ORDERED: ASPI-325 PO (13:20)
[2022-10-08] MEDS ORDERED: TRAM50TA2 PO (13:26)
[2022-10-08 16:46] VITALS: BP 112/60
[2022-10-08 16:49] VITALS: BP 130/61
== END 2022-10-08 17:30 | disposition home or self-care (01) | DRG 246 ==
LOC: ER 07:15 → EDBD 07:15 → CATH 1 07:31 → TELE 10:28 → TELE-WESTW 11:00
PROVIDERS: ADMIT Specialist; ATTEND Internal Medicine
PROC: 027034Z Dilation of Coronary Artery, One Artery with Drug-eluting Intraluminal Device, Percutaneous Approach (ICD-10-PCS; principal; 2022-10-03)
PROC: 02C03ZZ Extirpation of Matter from Coronary Artery, One Artery, Percutaneous Approach (ICD-10-PCS; 2022-10-03)
PROC: 5A09357 Assistance with Respiratory Ventilation, Less than 24 Consecutive Hours, Continuous Positive Airway Pressure (ICD-10-PCS; 2022-10-03)
PROC: B41FYZZ Fluoroscopy of Right Lower Extremity Arteries using Other Contrast (ICD-10-PCS; 2022-10-03)
PROC: 3E073PZ Introduction of Platelet Inhibitor into Coronary Artery, Percutaneous Approach (ICD-10-PCS; 2022-10-03)
PROC: 4A023N7 Measurement of Cardiac Sampling and Pressure, Left Heart, Percutaneous Approach (ICD-10-PCS; 2022-10-03)
PROC: B211YZZ Fluoroscopy of Multiple Coronary Arteries using Other Contrast (ICD-10-PCS; 2022-10-03)
PROC: B215YZZ Fluoroscopy of Left Heart using Other Contrast (ICD-10-PCS; 2022-10-03)
PROC: 027034Z Dilation of Coronary Artery, One Artery with Drug-eluting Intraluminal Device, Percutaneous Approach (ICD-10-PCS; 2022-10-05)
PROC: B41FYZZ Fluoroscopy of Right Lower Extremity Arteries using Other Contrast (ICD-10-PCS; 2022-10-05)
PROC: B241ZZ3 Ultrasonography of Multiple Coronary Arteries, Intravascular (ICD-10-PCS; 2022-10-05)
PROC: 4A023N7 Measurement of Cardiac Sampling and Pressure, Left Heart, Percutaneous Approach (ICD-10-PCS; 2022-10-05)
PROC: B211YZZ Fluoroscopy of Multiple Coronary Arteries using Other Contrast (ICD-10-PCS; 2022-10-05)
PROC: 05H933Z Insertion of Infusion Device into Right Brachial Vein, Percutaneous Approach (ICD-10-PCS; 2022-10-05)
PROC: B54MZZA Ultrasonography of Right Upper Extremity Veins, Guidance (ICD-10-PCS; 2022-10-05)
DX: I21.19 ST elevation (STEMI) myocardial infarction involving other coronary artery of inferior wall (principal); I50.31 Acute diastolic (congestive) heart failure; J96.00 Acute respiratory failure, unspecified whether with hypoxia or hypercapnia; Z68.45 Body mass index [BMI] 70 or greater, adult; I11.0 Hypertensive heart disease with heart failure; I25.10 Atherosclerotic heart disease of native coronary artery without angina pectoris; E11.9 Type 2 diabetes mellitus without complications; E66.9 Obesity, unspecified; M19.90 Unspecified osteoarthritis, unspecified site; E78.5 Hyperlipidemia, unspecified; Z91.148 Patient's other noncompliance with medication regimen for other reason; Z91.199 Patient's noncompliance with other medical treatment and regimen due to unspecified reason; Z95.5 Presence of coronary angioplasty implant and graft; Z68.31 Body mass index [BMI] 31.0-31.9, adult; Z80.0 Family history of malignant neoplasm of digestive organs; Z82.5 Family history of asthma and other chronic lower respiratory diseases; Z88.8 Allergy status to other drugs, medicaments and biological substances; Z91.012 Allergy to eggs
CPT/HCPCS: 36415; 36600; 71045; 75710; 80048; 80053; 80061; 81001; 82805; 82962; 83036; 83605; 83735; 84443; 84484; 85025; 85610; 85730; 86803; 86850; 86900; 86901; 87340; 92928; 92941; 92973; 92978; 93005; 93306; 93458; 96374; 96375; 97110; 97116; 97163; 99152; 99153; 99291; C1887; C9113; G0378; J0696; J1815; J2001; J2250; J2405; Q9967

== ENCOUNTER 2024-01-16 19:38 | Emergency (ER) | payer OTHER, MEDICAID ==
[~2024-01-16] VITALS: Ht 149.9 cm; Wt 74.2 kg
[~2024-01-16 19:38] MED LIST changes: +ASPI-325 PO; +ATOR20TA50 PO; +CETI10TA2 PO; +CHOL20007 PO; +EMPA1TAB3 PO; +ENAL1TAB43 GT; -ENAL2.5T11 GT; +ESOM20GR PO; +GLIP10TA9 PO; +HYDR25TA4 PO; +METO-6 PO; +MONT-8 IN; +SEMA2INJ3 SC; +TICA90TA PO; +TRAM50TA2 PO; +ZINC220C8 PO
[2024-01-16] MEDS: SODIUM CHLORIDE 0.9% 1,000 ML IV ONE (20:23)
[2024-01-16 20:29] LABS: Urine Bacteria None Seen /hpf (None Seen)
[2024-01-16 20:45] LABS: Urine Blood Negative /uL (Negative); Urine Clarity Clear (Clear); Urine Color Light-Yellow (Yellow); Urine Protein, UAD Negative (Negative); Urine Specific Gravity 1.031 (1.001-1.035); Urine Urobilinogen Normal (Negative); Urine WBC 1 /hpf (0 - 5)
[2024-01-16 21:08] LABS: Basophils # (auto) 0 10 ^3/uL (0-0.2); Basophils % (auto) 0.8 % (0.0-2.0); Eosinophils # (auto) 0 10 ^3/uL (0-0.8); Eosinophils % (auto) 0.4 % (0.0-7.0); Hematocrit 40.7 % (36.0-46.0); Hemoglobin 13.3 g/dL (12.2-16.2); Lymphocytes # (auto) 1.2 10 ^3/uL (0.4-5.4); Mean Corpuscular Hemoglobin 27.1 pg (28.0-32.0); Mean Corpuscular Hgb Conc. 32.6 g/dL (32.0-36.0); Mean Corpuscular Volume 83.1 fL (80.0-100.0); Monocytes # (auto) 0.3 10 ^3/uL (0-1.3); Monocytes % (auto) 4.8 % (0.0-12.0); Neutrophils # (auto) 3.9 10 ^3/uL (1.6-8.6); Nucleated Red Blood Cells % 0.1 %; Platelet Count (auto) 250 10^3/uL (140-450); Red Cell Distribution Width 15.2 % (11.8-14.3); White Blood Cell 5.3 10^3/uL (4.4-10.8)
[2024-01-16 21:21] LABS: Chloride 106 mmol/L (98-107); Potassium 3.9 mmol/L (3.5-5.1); Sodium 138 mmol/L (136-145)
[2024-01-16 21:22] LABS: Anion Gap 8 (5-15); Carbon Dioxide 24 mmol/L (20-31)
[2024-01-16 21:23] LABS: Calcium 9.2 mg/dL (8.7-10.4)
[2024-01-16 21:28] LABS: BUN/Creatinine Ratio 28.6 (10.0-20.0); Blood Urea Nitrogen 20 mg/dL (9-23); Glucose 229 mg/dL (74-106)
[2024-01-16] MEDS ORDERED: CEFD300C2 PO (21:43)
[2024-01-16] MEDS: cefTRIAXone 1GM/50ML D5W 50 ML IV ONE (21:52)
[2024-01-16 22:17] VITALS: BP 126/59; PULSE 79; RESP 17; TEMP 98.2; O2SAT 98
== END 2024-01-16 22:20 | disposition home or self-care (01) ==
LOC: ER 19:38
DX: R30.0 Dysuria (principal); E11.9 Type 2 diabetes mellitus without complications; I10 Essential (primary) hypertension; Z79.899 Other long term (current) drug therapy; Z79.82 Long term (current) use of aspirin; Z91.012 Allergy to eggs; Z86.73 Personal history of transient ischemic attack (TIA), and cerebral infarction without residual deficits; Z90.49 Acquired absence of other specified parts of digestive tract; Z98.890 Other specified postprocedural states
CPT/HCPCS: 36415; 80048; 81001; 85025; 96361; 96365; 99284; J0696; J7030